=== PATIENT | male | born 1960 | race Caucasian/White ===

== ENCOUNTER → 2016-10-14 07:34 | Outpatient (CLI) | payer MEDICAID ==
[2016-08-12 13:11] VITALS: BMI 30.5
[~2016-10-14 07:34] MED LIST: COUMADIN7.5 MG PO
--- NOTE | 2016-10-17 11:12 | ST ---
PATIENT:ADE PICHARDO MEDICAL RECORD: [id number] SEX: M LOCATION:[facility] ORDER #: ADMISSION DATE: 10/14/16 AGE OF PATIENT: 55 REFERRING PHYSICIAN: INTERPRETING PHYSICIAN: LALITHA MARIE MD DATE OF SERVICE: 10/14/2016 Nuclear Stress Test INDICATION: Chest pain of unknown etiology. He was exercised on standard Lexiscan protocol with 29.9 mCi of sestamibi injected at peak stress, 11.7 mCi were used previously for rest images. FINDINGS: Gated SPECT reveals preserved ejection fraction greater than 60% with total wall motion and thickening and brightening throughout all segments. SPECT imaging sestamibi was used as myocardial perfusion agent. There is homogeneous uptake throughout all segments at rest and stress with no evidence of inducible ischemia or previous infarction. OVERALL IMPRESSION: 1. No evidence of inducible ischemia or previous infarction. 2. Gated SPECT reveals a preserved ejection fraction greater than 60%. This patient with ongoing symptomatology, the current scan yields a low likelihood of hemodynamically significant coronary disease. Evaluate noncardiac etiology of chest pain. TRANSINT:[id number] Voice Confirmation ID: [id number] DOCUMENT ID: [id number] LALITHA MARIE MD at 1112 CC: [id number] DICTATION DATE: 10/14/16 1245 CARBONATOR: 10/14/16 2255 [facility] CLI 10/14/[address] [id number]
== END | disposition home or self-care (01) ==
LOC: D.NM 07:34
DX: I20.9 Angina pectoris, unspecified (principal)

== ENCOUNTER → 2016-11-13 11:20 | Outpatient (CLI) | payer OTHER ==
[2016-08-12 13:11] VITALS: BMI 30.5
== END | disposition home or self-care (01) ==
LOC: D.RAD 11:15
DX: Z02.71 Encounter for disability determination (principal)

== ENCOUNTER 2017-06-13 11:48 | Emergency (ER) | payer MEDICAID ==
[2016-08-12 13:11] VITALS: BMI 30.5
[2017-06-13 12:26] LABS: BASOPHILS 0.1 % (0-2); EOSINOPHILS 0.3 % (0-7); HEMATOCRIT 43.8 % (42.0-54.0); HEMOGLOBIN 15.2 g/dL (13.5-17.5); IMMATURE GRANULOCYTES 0.3 % (0-5); LYMPHOCYTES 22.4 % (15-50); MCH 30.6 pg (26.0-34.0); MCHC 34.7 g/dL (31.0-37.0); MCV 88.3 fL (80.0-100.0); MEAN PLATELET VOLUME 9.3 fL (7.4-10.4); MONOCYTES 6.8 % (2-11); NEUTROPHILS 70.1 % (40-80); PLATELET COUNT 213 10x3/uL (130-400); RBC 4.96 10x6/uL (4.20-6.10); RDW 12.7 % (11.5-14.5); WBC 7.8 10x3/uL (4.8-10.8)
[2017-06-13 12:40] LABS: ALBUMIN 3.8 g/dL (3.4-5.0); ALKALINE PHOSPHATASE 64 U/L (46-116); ALT (SGPT) 17 U/L (10-68); BILIRUBIN - TOTAL 0.73 mg/dL (0.2-1.3); CALC OSMOLALITY 277 mosm/kg (275-300); CALCIUM 8.9 mg/dL (8.5-10.1); CARBON DIOXIDE 24.7 mmol/L (21.0-32.0); CHLORIDE - SERUM 103 mmol/L (98-107); GLUCOSE 121 mg/dL (74-106); POTASSIUM - SERUM 3.3 mmol/L (3.5-5.1); PROTEIN - SERUM 7.2 g/dL (6.4-8.2); SODIUM 138 mmol/L (136-145); UREA NITROGEN 16 mg/dL (7-18); eGFR NON AFRICAN AMERICAN 82 mL/min (90-120)
[2017-06-13 12:44] LABS: AMYLASE - SERUM 95 U/L (25-115); CREATINE KINASE 89 UL (21-232); LIPASE 185 U/L (73-393)
[2017-06-13 12:57] LABS: TROPONIN-I < 0.017 ng/mL (0.000-0.060)
== END 2017-06-13 15:20 | disposition home or self-care (01) ==
LOC: D.ER 11:48
PROVIDERS: Emergency Medicine; Nurse Practitioner Family
DX: K22.6 Gastro-esophageal laceration-hemorrhage syndrome (principal); K21.9 Gastro-esophageal reflux disease without esophagitis; R11.10 Vomiting, unspecified

== ENCOUNTER 2018-12-19 10:15 | Emergency (ER) | payer MEDICAID ==
[~2018-12-19] VITALS: Ht 182.9 cm; Wt 109.1 kg
[2018-12-19 10:21] VITALS: Ht 182.9 cm; Wt 109.1 kg
[2018-12-19] MEDS ORDERED: ELIQUIS2.5 MG PO (10:23)
[2018-12-19] MEDS ORDERED: GABAPENTIN100 MG PO (10:23)
[2018-12-19] MEDS ORDERED: LISINOPRIL10 MG PO (10:23)
[2018-12-19] MEDS ORDERED: BAYER CHEWABLE81 MG PO (10:24)
[2018-12-19] MEDS ORDERED: ZOCOR20 MG PO (10:24)
[2018-12-19] MEDS ORDERED: PROPRANOLOL HCL20 MG PO (10:24)
[2018-12-19] MEDS ORDERED: CELEXA40 MG PO (10:24)
[2018-12-19] MEDS ORDERED: HYDROXYZINE PA100 MG PO (10:25)
[2018-12-19] MEDS ORDERED: TEGRETOL 100 M100 MG PO (10:25)
[2018-12-19] MEDS ORDERED: AMBIEN10 MG PO (10:25)
[2018-12-19 10:58] LABS: BASOPHILS 0.3 % (0-2); EOSINOPHILS 0.6 % (0-7); HEMATOCRIT 41.2 % (42.0-54.0); HEMOGLOBIN 14.2 g/dL (13.5-17.5); IMMATURE GRANULOCYTES 0.2 % (0-5); LYMPHOCYTES 31.4 % (15-50); MCH 30.3 pg (26.0-34.0); MCHC 34.5 g/dL (31.0-37.0); MCV 87.8 fL (80.0-100.0); MONOCYTES 5.7 % (2-11); NEUTROPHILS 61.8 % (40-80); PLATELET COUNT 203 10x3/uL (130-400); RBC 4.69 10x6/uL (4.20-6.10); RDW 13.8 % (11.5-14.5); WBC 6.3 10x3/uL (4.8-10.8)
[2018-12-19 12:14] LABS: ALBUMIN 3.6 g/dL (3.4-5.0); BILIRUBIN - TOTAL 0.33 mg/dL (0.2-1.3); CALCIUM 8.5 mg/dL (8.5-10.1); CARBON DIOXIDE 22.8 mmol/L (21.0-32.0); CREATININE - SERUM 1.4 mg/dL (0.6-1.3); POTASSIUM - SERUM 3.8 mmol/L (3.5-5.1); PROTEIN - SERUM 7.6 g/dL (6.4-8.2)
[2018-12-19 14:01] VITALS: BP 128/83
== END 2018-12-19 14:01 | disposition home or self-care (01) ==
LOC: D.ER 10:15
PROVIDERS: Emergency Medicine
DX: M79.605 Pain in left leg (principal); Z79.01 Long term (current) use of anticoagulants; Z86.718 Personal history of other venous thrombosis and embolism; I73.9 Peripheral vascular disease, unspecified